=== PATIENT | male | born 1970 | race African-American/Black ===

== ENCOUNTER 2017-11-19 22:37 | Emergency (ER) | payer MEDICAID, OTHER ==
[2017-11-20] MEDS: KETOROLAC 30 MG INJ IM (01:23)
[2017-11-20] MEDS: DIPHTH/TET/ACEL PERTUSS (ADULT) 0.5 ML VIAL IM* (01:38)
[2017-11-20] MEDS: AMOXICILLIN/CLAV 875 MG TAB PO (01:46)
== END 2017-11-20 02:14 | disposition home or self-care (01) ==
LOC: FTE 22:37
DX: S41.132A Puncture wound without foreign body of left upper arm, initial encounter (principal); J45.909 Unspecified asthma, uncomplicated; S29.9XXA Unspecified injury of thorax, initial encounter; S19.9XXA Unspecified injury of neck, initial encounter; W54.0XXA Bitten by dog, initial encounter; Y92.9 Unspecified place or not applicable; Z23 Encounter for immunization; Z87.891 Personal history of nicotine dependence
CPT/HCPCS: 90471; 90715; 96372; 99284-25